=== PATIENT | female | born 2000 | race Two or more races ===

== ENCOUNTER 2021-11-11 13:23 | Emergency (ER) | payer OTHER ==
[~2021-11-11] VITALS: Ht 149.9 cm; Wt 67.6 kg
[2021-11-11] MEDS ORDERED: MEDROLPACK PO (16:46)
[2021-11-11] MEDS ORDERED: MUCINEX DM ER1 EAC1 PO (16:46)
[2021-11-11] MEDS ORDERED: IPRAT-ALBUT 0.5-3 ML IH (16:46)
[2021-11-11] MEDS ORDERED: BUDESONIDE0.5 MG/2 M IH (16:46)
== END 2021-11-11 17:45 ==
LOC: ER 13:23
DX: J45.901 Unspecified asthma with (acute) exacerbation (principal); J98.01 Acute bronchospasm; Z11.52 Encounter for screening for COVID-19

== ENCOUNTER 2021-11-24 06:52 | Inpatient (IN) | payer OTHER ==
[~2021-11-24] VITALS: Ht 149.9 cm; Wt 68.0 kg
[~2021-11-24 06:52] MED LIST: BUDESONIDE0.5 MG/2 M IH; IPRAT-ALBUT 0.5-3 ML IH; MEDROLPACK PO; MUCINEX DM ER1 EAC1 PO
[2021-11-24] MEDS ORDERED: PRENATAL TABLE1 EAC1 PO (07:47)
== END 2021-11-26 11:12 | disposition home or self-care (01) | DRG 807 ==
LOC: OB/GYN 06:52 → LDR 06:52 → OB/GYN 15:55
PROVIDERS: ADMIT Obstetrics & Gynecology; ATTEND Obstetrics & Gynecology
PROC: 10E0XZZ Delivery of Products of Conception, External Approach (ICD-10-PCS; principal; 2021-11-24)
PROC: 0HQ9XZZ Repair Perineum Skin, External Approach (ICD-10-PCS; 2021-11-24)
PROC: 10907ZC Drainage of Amniotic Fluid, Therapeutic from Products of Conception, Via Natural or Artificial Opening (ICD-10-PCS; 2021-11-24)
PROC: 3E033VJ Introduction of Other Hormone into Peripheral Vein, Percutaneous Approach (ICD-10-PCS; 2021-11-24)
PROC: 4A1 Measurement and Monitoring, Physiological Systems, Monitoring (ICD-10-PCS; 2021-11-24)
DX: O70.0 First degree perineal laceration during delivery (principal); Z37.0 Single live birth; O99.824 Streptococcus B carrier state complicating childbirth; Z3A.38 38 weeks gestation of pregnancy